=== PATIENT | male | born 1975 | race Caucasian/White ===

== ENCOUNTER 2018-01-07 13:24 | Emergency (ER) | payer SELFPAY ==
--- NOTE | 2018-01-07 13:38 | CPEKG ---
Heart Rate: 68 RR Interval: 882 P-R Interval: 132 QRSD Interval: 88 QT Interval: 404 QTC Interval: 430 P [place]: 45 QRS [place]: 53 T Wave [place]: 42 EKG Severity - NORMAL ECG - EKG Impression: SINUS RHYTHM Electronically Signed By: Tang Nova 07-Jan-2018 15:46:50
--- NOTE | 2018-01-07 13:46 | EDPHY ---
H & P Time Seen by Provider: 01/07/18 13:45 HPI/ROS: Chief complaint. Chest pain HPI. 42-year-old male presents emergency department with sharp left anterior chest pain that began at noon. He has had both hands tingling the last few days. He has left anterior chest discomfort that he describes as sharp and worse with deep breath. Some radiation to the left axilla. No cough or fever. No abdominal pain. No unusual leg pain or swelling. Denies history heart, lung, hypertension, diabetes. Denies family history. He does not smoke cigarettes ROS Constitutional. no fever/chills, no weakness Eyes. no problems with vision ENT. no sore throat, no nasal drainage Cardiovascular. Sharp left anterior chest pain Respiratory. no shortness of breath, no cough Abdominal. no abdominal pain, no nausea/vomiting, no diarrhea . no problems urinating MS. no calf pain/swelling, no neck/back pain, no joint pain Skin. no rash Lymph. no swollen glands Neuro. no headache, no dizziness, no difficulty walking or with speech Past Medical/Surgical History: Orthopedic surgeries Social History: Single, nonsmoker, no alcohol Smoking Status: Never smoked Physical Exam: General Appearance: Alert well-developed male mild distress vital signs are stable Eyes: Pupils equal and round no pallor or injection. ENT, Mouth: Mucous membranes are moist. Respiratory: There are no retractions, lungs are clear to auscultation. Cardiovascular: Regular rate and rhythm. Gastrointestinal: Abdomen is soft and nontender, no masses, bowel sounds normal. Neurological: Awake and alert, sensory and motor exams grossly normal. Skin: Warm and dry, no rashes. Musculoskeletal: Neck is supple nontender. Extremities symmetrical, full range of motion. Psychiatric: Patient is oriented X 3, there is no agitation. Constitutional: Initial Vital Signs Temperature (C) 36.7 C 01/07/18 13:25 Heart Rate 73 01/07/18 13:25 Respiratory Rate 16 01/07/18 13:25 Blood Pressure 123/86 H 01/07/18 13:25 O2 Sat (%) 100 01/07/18 13:25 O2 Delivery Mode Room Air Allergies/Adverse Reactions: No Known Allergies Allergy (Unverified 01/07/18 13:29) Medical Decision Making - Diagnostics EKG Interpretation: EKG interpreted by shows normal sinus rhythm normal interval and axis. QRS is normal there is no significant ST elevation or depression. No arrhythmia. The rate is 68 Imaging Results: Imaging Impressions Chest X-Ray 01/07/18 13:54 Impression: No pneumothorax or pneumonia. Mild airways disease. Procedures: IV normal saline, monitor IV Toradol ED Course/Re-evaluation: Re-evaluation at 3:05 p.m. Patient has less discomfort and feels that he is improving Repeat troponin is also 0 Re-evaluation 4:10 p.m. Patient feeling much better. Still occasionally has a 1 -2 second twinge of left anterior sharp chest discomfort he but normal in between times. Patient and I discussed imaging and lab an EKG results. We reviewed the chest pain pathway. Patient's total risk is 0. The patient declines hospitalization and would prefer to follow up with Cardiology as an outpatient. He is encouraged to return for worsening symptoms as well as follow-up. He expresses understanding and agreement Differential Diagnosis: Patient has no risk factors for early coronary artery disease. I he really has no risk factors for pulmonary embolus either. His chest x-ray is normal with normal appearing aorta. I have considered PE, aortic dissection, acute coronary syndrome. This is more likely muscular. - Data Points Laboratory Results: Laboratory Results 01/07/18 14:01 01/07/18 14:01 01/07/18 01/07/18 01/07/18 15:35 14:06 14:01 WBC RBC Hgb Hct MCV MCH MCHC RDW Plt Count MPV Neut % (Auto) Lymph % (Auto) [place] % (Auto) Eos % (Auto) Baso % (Auto) Nucleat RBC Rel Count Absolute Neuts (auto) Absolute Lymphs (auto) Absolute Monos (auto) Absolute Eos (auto) Absolute Basos (auto) Absolute Nucleated RBC Immature Gran % Immature Gran # D-Dimer Sodium 139 mEq/L mEq/L (135-145) Potassium 4.1 mEq/L mEq/L (3.3-5.0) Chloride 109 mEq/L mEq/L (97-110) Carbon Dioxide 21 mEq/l L mEq/l (22-31) Anion Gap 9 mEq/L mEq/L (8-16) BUN 18 mg/dL mg/dL (7-23) Creatinine 1.0 mg/dL mg/dL (0.7-1.3) Estimated GFR > 60 Glucose 99 mg/dL mg/dL (70-100) Calcium 10.2 mg/dL mg/dL (8.5-10.4) POC Troponin I 0.00 ng/mL ng/mL 0.00 ng/mL ng/mL (0.00-0.08) (0.00-0.08) Lipase 35 IU/L IU/L (23-300) 01/07/18 01/07/18 14:01 14:01 WBC 7.56 10^3/uL 10^3/uL (3.80-9.50) RBC 4.86 10^6/uL 10^6/uL (4.40-6.38) Hgb 15.6 g/dL g/dL (13.7-17.5) Hct 44.6 % % (40.0-51.0) MCV 91.8 fL fL (81.5-99.8) MCH 32.1 pg pg (27.9-34.1) MCHC 35.0 g/dL g/dL (32.4-36.7) RDW 11.8 % % (11.5-15.2) Plt Count 221 10^3/uL 10^3/uL (150-400) MPV 10.1 fL fL (8.7-11.7) Neut % (Auto) 53.2 % % (39.3-74.2) Lymph % (Auto) 33.3 % % (15.0-45.0) [place] % (Auto) 8.1 % % (4.5-13.0) Eos % (Auto) 4.4 % % (0.6-7.6) Baso % (Auto) 0.7 % % (0.3-1.7) Nucleat RBC Rel Count 0.0 % % (0.0-0.2) Absolute Neuts (auto) 4.03 10^3/uL 10^3/uL (1.70-6.50) Absolute Lymphs (auto) 2.52 10^3/uL 10^3/uL (1.00-3.00) Absolute Monos (auto) 0.61 10^3/uL 10^3/uL (0.30-0.80) Absolute Eos (auto) 0.33 10^3/uL 10^3/uL (0.03-0.40) Absolute Basos (auto) 0.05 10^3/uL 10^3/uL (0.02-0.10) Absolute Nucleated RBC 0.00 10^3/uL 10^3/uL (0-0.01) Immature Gran % 0.3 % % (0.0-1.1) Immature Gran # 0.02 10^3/uL 10^3/uL (0.00-0.10) D-Dimer < 0.27 ug/mLFEU ug/mLFEU (0.00-0.50) Sodium Potassium Chloride Carbon Dioxide Anion Gap BUN Creatinine Estimated GFR Glucose Calcium POC Troponin I Lipase Medications Given: Discontinued Medications Al Hydroxide/Mg Hydroxide (Maalox Susp) 30 ml PO ONCE ONE Stop: 01/07/18 14:50 Last Admin: 01/07/18 15:19 Dose: 30 ml Ketorolac Tromethamine (Toradol) 30 mg IVP EDNOW ONE Stop: 01/07/18 13:55 Last Admin: 01/07/18 14:16 Dose: 30 mg Lidocaine (Lidocaine 2% Viscous) 15 ml PO ONCE ONE Stop: 01/07/18 14:50 Last Admin: 01/07/18 15:20 Dose: 15 ml Point of Care Test Results: Chemistry 01/07/18 01/07/18 15:35 14:06 POC Troponin I 0.00 ng/mL ng/mL 0.00 ng/mL ng/mL (0.00-0.08) (0.00-0.08) Departure - Departure Disposition: Home, Routine, Self-Care Clinical Impression: Chest pain Qualifiers: Chest pain type: unspecified Qualified Code(s): R07.9 - Chest pain, unspecified Condition: Good Instructions: Chest Pain (ED) Additional Instructions: Ibuprofen 600 mg every 6 hr for discomfort. Easy activity. Return for worsening chest discomfort or trouble breathing. Call Cardiology tomorrow for follow-up appointment Referrals: Patient,NotPresent [Unknown] - As per Instructions Nico Sanchez MD [Medical Doctor] - 2-3 days, call for appt.
[2018-01-07] MEDS ORDERED: KETOROLAC 30 MG/1 ML SDV IVP ONE (13:54)
[2018-01-07 14:14] LABS: PLATELET COUNT 221 10^3/uL (150-400)
[2018-01-07] MEDS ORDERED: LIDOCAINE 2% VISCOUS 15 ML UDCUP PO ONE (14:49)
[2018-01-07] MEDS ORDERED: MAG HYDROX/AL HYDROX/SIMETH 30 ML UDCUP PO ONE (14:49)
[2018-01-07 16:07] VITALS: BP 125/83
== END 2018-01-07 16:26 | disposition home or self-care (01) ==
DX: R07.9 Chest pain, unspecified (principal)
CPT/HCPCS: 84484-PO; 96374; J1885